=== PATIENT | male | born 1950 | race Caucasian/White ===

== ENCOUNTER 2020-10-16 04:37 | Emergency (ER) | payer OTHER ==
[~2020-10-16] VITALS: Ht 175.3 cm; Wt 81.6 kg
[2020-10-16] MEDS ORDERED: CARV6.25 PO (05:25)
[2020-10-16] MEDS ORDERED: ATOR20TA PO (05:25)
[2020-10-16] MEDS ORDERED: LISI-285 PO (05:25)
[2020-10-16] MEDS ORDERED: PATI1POW PO (05:25)
[2020-10-16] MEDS ORDERED: INSLANTI SC (05:25)
[2020-10-16] MEDS ORDERED: ASPI-543 PO (05:25)
[2020-10-16] MEDS ORDERED: FERR-20 PO (05:25)
[2020-10-16] MEDS ORDERED: SODIUM CHLORIDE 0.9% 1,000 ML IV ONE (06:45)
[2020-10-16] MEDS ORDERED: SODIUM CHLORIDE 0.9% 500 ML IVB ONE (06:45)
[2020-10-16 08:07] LABS: Anion Gap 10 (5-15); Blood Alcohol < 3.0 mg/dL (0-5); Blood Urea Nitrogen 74 mg/dL (7-18); Calcium 9.1 mg/dL (8.5-10.1); Carbon Dioxide 22 mmol/L (21-32); Chloride 115 mmol/L (98-107); Glucose 174 mg/dL (74-106); Magnesium 2.9 mg/dL (1.6-2.6); Potassium 3.9 mmol/L (3.5-5.1); Sodium 147 mmol/L (136-145)
[2020-10-16 08:09] VITALS: BP 163/64
[2020-10-16 08:13] LABS: Alanine Aminotransferase 146 U/L (16-61); Alkaline Phosphatase 104 U/L (45-117); Aspartate Aminotransferase 184 U/L (15-37); BUN/Creatinine Ratio 27.8; Bilirubin, Total 0.7 mg/dL (0.2-1.0); GFR African American 31 mL/min; GFR Non-African American 25 mL/min; Total Protein 7.3 g/dL (6.4-8.2)
[2020-10-16 08:16] LABS: Basophils # (auto) 0 10 ^3/uL (0-0.2); Basophils % (auto) 0.3 % (0.0-2.0); Eosinophils # (auto) 0 10 ^3/uL (0-0.8); Eosinophils % (auto) 0.2 % (0.0-7.0); Hemoglobin 11.6 g/dL (13.5-17.5); Lymphocytes # (auto) 1.4 10 ^3/uL (0.4-5.4); Lymphocytes % (auto) 8.2 % (10.0-50.0); Mean Corpuscular Hemoglobin 30.1 pg (28.0-32.0); Mean Corpuscular Hgb Conc. 34.1 g/dL (32.0-36.0); Mean Corpuscular Volume 88.5 fL (80.0-100.0); Monocytes # (auto) 1.4 10 ^3/uL (0-1.3); Monocytes % (auto) 8.2 % (0.0-12.0); Neutrophils # (auto) 14.4 10 ^3/uL (1.6-8.6); Neutrophils % (auto) 83.1 % (37.0-80.0); Platelet Count (auto) 442 10^3/uL (140-450); Red Blood Cells 3.84 10^6/uL (4.5-5.90); Red Cell Distribution Width 14.5 % (11.8-14.3); White Blood Cell 17.3 10^3/uL (4.4-10.8)
== END 2020-10-16 08:26 | disposition short-term general hospital (02) ==
LOC: EDBD 04:37 → ER 04:37
DX: S06.5X9A Traumatic subdural hemorrhage with loss of consciousness of unspecified duration, initial encounter (principal); S40.811A Abrasion of right upper arm, initial encounter; S80.811A Abrasion, right lower leg, initial encounter; R41.82 Altered mental status, unspecified; M50.10 Cervical disc disorder with radiculopathy, unspecified cervical region; M47.896 Other spondylosis, lumbar region; I27.21 Secondary pulmonary arterial hypertension; E11.9 Type 2 diabetes mellitus without complications; E78.5 Hyperlipidemia, unspecified; X58.XXXA Exposure to other specified factors, initial encounter; Y93.89 Activity, other specified; Y92.89 Other specified places as the place of occurrence of the external cause; Y99.8 Other external cause status
CPT/HCPCS: 36415; 70450; 71250; 72125; 74176; 80053; 80320; 82962; 83735; 84443; 84484; 85025; 85379; 93005; 96360; 96361; 99285; J7030; J7040